=== PATIENT | female | born 2000 | race Native Hawaiian/Other Pacific Islander ===

== ENCOUNTER 2022-02-24 06:32 | Emergency (ER) | payer MEDICAID ==
--- NOTE | 2022-02-24 10:11 | Emergency Department Report ---
ED HPI - General Chief complaint: Vaginal Bleeding Stated complaint: 12WKS PREG/SPOTTING W/CRAMPS Time Seen by Provider: 02/24/22 10:07 Source: patient Mode of arrival: Ambulatory Limitations: No Limitations - History of Present Illness Initial comments: Patient 21-year-old female who is G1, who presents for abdominal pain, cramping and vaginal spotting x2 days. Last menstrual period 12 weeks ago. There is no fevers or chills no vomiting. Patient states 4/10 back pain. Symptoms are exacerbated by movement and palpation. Symptoms are relieved by nothing tried. Denies dysuria frequency or urgency. MD Complaint: abdominal pain, vaginal bleeding - Related Data Allergies Allergy/AdvReac Type Severity Reaction Status Date / Time No Known Allergies Allergy Verified 02/24/22 07:16 ED Review of Systems ROS: Stated complaint: 12WKS PREG/SPOTTING W/CRAMPS Other details as noted in HPI Constitutional: denies: chills, fever Eyes: denies: eye pain, eye discharge, vision change ENT: denies: ear pain, throat pain Respiratory: denies: cough, shortness of breath, wheezing Cardiovascular: denies: chest pain, palpitations Endocrine: no symptoms reported Gastrointestinal: abdominal pain (Cramping). denies: nausea, vomiting Genitourinary: other. denies: urgency, dysuria, frequency (Vaginal spotting), discharge Musculoskeletal: back pain Skin: denies: rash, lesions Neurological: denies: headache, weakness, paresthesias Psychiatric: denies: anxiety, depression Hematological/Lymphatic: denies: easy bleeding, easy bruising ED Physical Exam - General Limitations: No Limitations General appearance: alert, in no apparent distress - Head Head exam: Present: normocephalic - Eye Eye exam: Present: EOMI Pupils: Present: normal accommodation - ENT ENT exam: Present: mucous membranes moist - Neck Neck exam: Present: normal inspection, full ROM. Absent: tenderness - Respiratory Respiratory exam: Present: normal lung sounds bilaterally. Absent: respiratory distress, wheezes, stridor - Cardiovascular Cardiovascular Exam: Present: regular rate, normal rhythm, normal heart sounds. Absent: systolic murmur, diastolic murmur, rubs, gallop - GI/Abdominal GI/Abdominal exam: Present: soft, normal bowel sounds. Absent: distended, tenderness - Rectal Rectal exam: Present: deferred - External exam: Present: other (Deferred per patient) - Extremities Exam Extremities exam: Present: normal inspection, full ROM, normal capillary refill. Absent: tenderness, pedal edema - Back Exam Back exam: Present: normal inspection, full ROM. Absent: CVA tenderness (R), CVA tenderness (L) - Neurological Exam Neurological exam: Present: alert, oriented X3, CN II-XII intact, normal gait - Expanded Neurological Exam Expanded Patient oriented to: Present: person, place, time Speech: Present: fluid speech Best Eye Response (James): (4) open spontaneously Best Motor Response ([place]): (6) obeys commands Best Verbal Response (James): (5) oriented James Total: 15 - Psychiatric Psychiatric exam: Present: normal affect, normal mood - Skin Skin exam: Present: warm, dry, intact, normal color. Absent: rash ED Course Vital Signs 02/24/22 07:13 Temperature 98.3 F Pulse Rate 70 Respiratory 20 Rate Blood Pressure 117/71 [Right] O2 Sat by Pulse 99 Oximetry ED Medical Decision Making - Lab Data Labs 02/24/22 10:10 HCG, Quant [id number] H - Radiology Data Radiology results: report reviewed, image reviewed ULTRASOUND OBSTETRIC INDICATION / CLINICAL INFORMATION: preg vag spotting. TECHNIQUE: Transabdominal. COMPARISON: None available. FINDINGS: GESTATIONAL SAC: Well-defined oval shape and intrauterine in location. YOLK SAC: No significant abnormality. EMBRYO/FETUS: No significant abnormality. - [place]-Rump Length = 3.3 cm = 10, 0 weeks, days - Heart Rate, beats per minute (if present) = 171 ADNEXA: No significant abnormality. Left ovary nonvisualized FREE FLUID: None. ADDITIONAL FINDINGS: None. IMPRESSION: 1. Single, living intrauterine with estimated sonographic age of 10, 0 weeks, days. Signer Name: Pepito Esposito MD Signed: 02/24/2022 11:20 AM Workstation Name: [id number] Transcribed By: REECE Dictated By: PEPITO ESPOSITO MD Electronically Authenticated By: PEPITO ESPOSITO MD Signed Date/Time: 02/24/22 1120 DD/ 1118 TD/TT: - Medical Decision Making Patient 21-year-old female who is G1, who presents for abdominal pain, cramping and vaginal spotting x2 days. Last menstrual period 12 weeks ago. There is no fevers or chills no vomiting. Patient states 4/10 back pain. Symptoms are exacerbated by movement and palpation. Symptoms are relieved by nothing tried. Denies dysuria frequency or urgency. Ultrasound OB single IUP 10 weeks 0 days heart rate 171 bpm there is no vaginal bleeding at this time. hcg: as above, pt advised she can no longer wait for CBC, and Urine results, she denies dysuria, frequency, or urgency , there is no vaginal discharge, no spotting at this time, pt directed to follow up with OGBYN in 1-2 days, strict pelvic rest, and return to emergency department if symptoms worsen. Patient verbalized agreement and understanding of discharge plan. Patient DC'd to home in stable condition at this time. Patient is currently alert oriented x3 tolerating p.o. intake without nausea vomiting there is no fevers no chills normal vital signs. No active vaginal bleeding at this time. Critical care attestation.: If time is entered above; I have spent that time in minutes in the direct care of this critically ill patient, excluding procedure time. ED Disposition Clinical Impression: Qualifiers: Weeks of gestation: 10 weeks Qualified Code(s): Z3A.10 - 10 weeks gestation of Disposition: 01 HOME / SELF CARE / HOMELESS Is pt being admited?: No Does the pt Need Aspirin: No Condition: Stable Instructions: Preventing Low and Very Low Weight, First Trimester of , [id number] Additional Instructions: Follow-up with your LAB INSTRUCTOR doctor in 1 to 2 days. Pelvic rest as discussed and agreed. Return to emergency department should symptoms worsen or return. Referrals: LILY IRVING MD [Staff Physician] - 3-5 Days Forms: Work/School Release Form(ED) Time of Disposition: 12:15
--- NOTE | 2022-02-24 11:24 | Ultrasound Report ---
ULTRASOUND OBSTETRIC INDICATION / CLINICAL INFORMATION: preg vag spotting. TECHNIQUE: Transabdominal. COMPARISON: None available. FINDINGS: GESTATIONAL SAC: Well-defined oval shape and intrauterine in location. YOLK SAC: No significant abnormality. EMBRYO/FETUS: No significant abnormality. - [place]-Rump Length = 3.3 cm = 10, 0 weeks, days - Heart Rate, beats per minute (if present) = 171 ADNEXA: No significant abnormality. Left ovary nonvisualized FREE FLUID: None. ADDITIONAL FINDINGS: None. IMPRESSION: 1. Single, living intrauterine with estimated sonographic age of 10, 0 weeks, days. Signer Name: Pepito Wheeler MD Signed: 02/24/2022 11:20 AM Workstation Name: [email or web address]
--- NOTE | 2022-02-24 11:24 | Ultrasound Report ---
ULTRASOUND OBSTETRIC INDICATION / CLINICAL INFORMATION: preg vag spotting. TECHNIQUE: Transabdominal. COMPARISON: None available. FINDINGS: GESTATIONAL SAC: Well-defined oval shape and intrauterine in location. YOLK SAC: No significant abnormality. EMBRYO/FETUS: No significant abnormality. - [place]-Rump Length = 3.3 cm = 10, 0 weeks, days - Heart Rate, beats per minute (if present) = 171 ADNEXA: No significant abnormality. Left ovary nonvisualized FREE FLUID: None. ADDITIONAL FINDINGS: None. IMPRESSION: 1. Single, living intrauterine with estimated sonographic age of 10, 0 weeks, days. Signer Name: Pepito Wheeler MD Signed: 02/24/2022 11:20 AM Workstation Name: [id number]
[2022-02-24 12:57] VITALS: BP 134/80
[2022-02-24 14:28] LABS: Basophils % (Auto) 0.6 % (0.0-1.8); Eosinophils # (Auto) 0.1 K/mm3 (0.0-0.4); Eosinophils % (Auto) 1.3 % (0.0-4.3); Hematocrit 33.9 % (30.3-42.9); Hemoglobin 11.9 gm/dl (10.1-14.3); Lymphocytes # (Auto) 1.6 K/mm3 (1.2-5.4); Lymphocytes % (Auto) 25.4 % (13.4-35.0); Mean Corpuscular HGB Conc 35 % (30-34); Mean Corpuscular Volume 90 fl (79-97); Monocytes # (Auto) 0.4 K/mm3 (0.0-0.8); Monocytes % (Auto) 6.7 % (0.0-7.3); Platelet Count 192 K/mm3 (140-440); Red Blood Count 3.79 M/mm3 (3.65-5.03)
== END 2022-02-24 12:57 | disposition home or self-care (01) ==
LOC: ED 06:32
DX: O26.891 Other specified pregnancy related conditions, first trimester (principal); R10.9 Unspecified abdominal pain; Z3A.10 10 weeks gestation of pregnancy
CPT/HCPCS: 36415; 76801; 76817; 84702; 85025; 99284